=== PATIENT | male | born 1950 | race Caucasian/White ===

== ENCOUNTER 2017-09-26 09:33 | Emergency (ER) | payer MEDICARE ==
[~2017-09-26] VITALS: Ht 172.7 cm; Wt 95.3 kg
[2017-09-26 09:33] VITALS: BP_SYST 99
--- NOTE | 2017-09-26 09:33 | NUR ---
BIB [address] from [facility]. Placed in room 01. Placed on rn cardiac, blood pressure machine and pulse oximeter. To gown for exam. Side rails up. Report given to AGUSTIN Velasquez.
--- NOTE | 2017-09-26 09:34 | NUR ---
Pt was brought in by ALS, complains of dizziness and weakness since this morning. Paramedics states he was at religious and was feeling weak. states patient looked pale, denies syncope. Pt denies N/V. Pt states he only has hx of high cholesterol. En route pt received 250 mL of NS. No other injuries/complaints per patient or noted.
--- NOTE | 2017-09-26 09:35 | NUR ---
ER Dr. Cohen at bedside examining patient.
--- NOTE | 2017-09-26 09:36 | NUR ---
[address] for low temp and cool dry skin
--- NOTE | 2017-09-26 09:54 | NUR ---
Pt went to radiology in stable condition.
[2017-09-26 10:00] LABS: BASOPHILS % (AUTO) 0.5 % (0.0-2.0); EOSINOPHILS # (AUTO) 0.2 K/uL (0.0-0.4); EOSINOPHILS % (AUTO) 2.1 % (0.0-4.0); HEMATOCRIT 42.5 % (36-54); HEMOGLOBIN 13.7 g/dL (14.0-18.0); LYMPHOCYTES # (AUTO) 1.1 K/uL (1.0-5.5); LYMPHOCYTES % (AUTO) 14.5 % (20.5-51.5); MEAN CORPUSCULAR HEMOGLOBIN 30 pg (27-31); MEAN CORPUSCULAR HGB CONC 32 % (32-36); MEAN CORPUSCULAR VOLUME 93 fL (79.0-98.0); MONOCYTES % (AUTO) 12.8 % (1.7-9.3); NEUTROPHILS # (AUTO) 5.1 K/uL (1.8-7.7); NEUTROPHILS % (AUTO) 70.1 % (40.0-70.0); PLATELET COUNT (AUTO) 174 K/uL (130-430); RED BLOOD CELL COUNT(AUTO) 4.56 MIL/uL (4.2-6.2); RED CELL DISTRIBUTION WIDTH 12.9 % (9.0-15.0); WHITE BLOOD COUNT (AUTO) 7.4 K/uL (4.8-10.8)
--- NOTE | 2017-09-26 10:03 | NUR ---
Pt returned from radiology in stable condition.
[2017-09-26 10:15] LABS: CALCIUM 9.4 mg/dL (8.4-11.0); CREATININE 1.13 mg/dL (0.55-1.30); POTASSIUM 4.2 mmol/L (3.5-5.1)
[2017-09-26 10:20] LABS: ALBUMIN 3.6 g/dL (3.4-4.8); TOTAL BILIRUBIN 0.5 mg/dL (0.0-1.0)
[2017-09-26 10:32] LABS: BILIRUBIN,URINE NEGATIVE (NEGATIVE); BLOOD, URINE NEGATIVE (NEGATIVE); CLARITY/URINE CLEAR (CLEAR); COLOR,URINE YELLOW (YELLOW); GLUCOSE,URINE NEGATIVE (NEGATIVE); KETONES,URINE NEGATIVE (NEGATIVE); LEUKOCYTE ESTERASE ,URINE NEGATIVE (NEGATIVE); NITRITE, URINE NEGATIVE (NEGATIVE); PROTEIN URINE 1+ (NEGATIVE)
[2017-09-26 10:36] LABS: INR 1.1 (0.80-1.20); PROTHROMBIN TIME 11.3 SECS (9.5-12.5)
[2017-09-26] MEDS: NS 500 ML IV SCH (10:45)
[2017-09-26] MEDS: cefTRIAXone 1 GM IVPB PREMIX 50 ML IV ONE (10:46)
--- NOTE | 2017-09-26 10:47 | NUR ---
Medication was given, pt tolerated well. No adverse reaction, will continue to monitor.
[2017-09-26 11:08] LABS: BACTERIA,URINE MODERATE /HPF (None Seen); RBC,URINE 0-3 /HPF (0-3); WBC,URINE 0-3 /HPF (0-3)
--- NOTE | 2017-09-26 11:16 | NUR ---
Pt resting comfortably in hospital bed. Will continue to monitor.
[2017-09-26 12:05] VITALS: BP_SYST 106
--- NOTE | 2017-09-26 12:05 | NUR ---
Patient to be transferred to [facility]. Is being transferred due to higher level of care. Receiving facility has accepting physician and available space. ER physician has signed transfer form. Patient or responsible green party has agreed to transfer and signed form. Patient belongings inventoried and will be sent with patient. Copy of nursing notes, lab reports, EKG, Physicians Orders and X-rays to be sent with patient. Report called to Ramo at receiving facility. Receiving physician is Dr. Caitlyn Duarte. [employer] ambulance service has been called for transfer. ETA is [id number].
== END 2017-09-26 12:05 | disposition short-term general hospital (02) ==
LOC: SED 09:33
DX: R55 Syncope and collapse (principal); I95.9 Hypotension, unspecified; E78.00 Pure hypercholesterolemia, unspecified
CPT/HCPCS: 36415; 70450; 71045; 80053; 81000; 83605; 84484; 85025; 85610; 85730; 87040; 87086; 93005; 96365; 99285; J0696; J7040